=== PATIENT | male | born 1975 | race Caucasian/White ===

== ENCOUNTER 2021-09-11 23:38 | Emergency (ER) | payer OTHER, SELFPAY ==
--- NOTE | ~2021-09-11 | CT_ITS ---
EXAMINATION: CT abdomen pelvis wo con DATE: 09/12/2021 00:28 INDICATION: Right flank pain TECHNIQUE: Computed tomography (CT) of the abdomen and pelvis was performed without intravenous contr ast. Automated exposure control and iterative reconstruction technique were employed. Exam dose: 175 3.83 mGy-cm total exam DLP. COMPARISON: 07/26/2019 [facility] 07/26/2019 CT abdomen pelvis FINDINGS: Mild discoid atelectasis or scarring at the lingula and left lower lobe. Normal heart size. No pericardial or pleural effusion. There is hepatic steatosis with relative sparing at the pericholecystic area. No hepatic, splenic, pa ncreatic, and adrenal or renal space-occupying mass lesion is evident. There is a pinpoint lower pole right renal calculus and approximately 3 mm mid left renal calculus. No ureteral calculus or hydrour eteronephrosis is noted on either side. The urinary bladder and prostate gland and seminal vesicles a re unremarkable. Normal caliber of the abdominal aorta. No intraperitoneal or retroperitoneal or pelvic mass lesion or adenopathy or ascites. The appendix is not definitively identified. Diverticulosis of the sigmoid colon; no CT evidence of d iverticulitis. No bowel obstruction, bowel wall thickening, pneumatosis or intraperitoneal free air. Small fat-containing umbilical hernia. 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 IMPRESSION: Small nonobstructing calculus of each kidney; no ureteral calculus or hydroureteronephro sis Hepatic steatosis Mild sigmoid diverticulosis; no CT evidence of diverticulitis Bilateral L5 pars interarticularis defects with grade 2 anterolisthesis and severe degenerative disc disease at L5-S1 Reviewed, dictated and finalized at [facility]. Reviewed, dictated and finalized at [facility] [employer] IMPRESSION: Small nonobstructing calculus of each kidney; no ureteral calculus or hydroureteronephrosis Hepatic steatosis Mild sigmoid diverticulosis; no CT evidence of diverticulitis Bilateral L5 pars interarticularis defects with grade 2 anterolisthesis and sev ere degenerative disc disease at L5-S1
[2021-09-11 23:49] VITALS: BP 162/103; PULSE 73; RESP 20; TEMP 36.6; O2SAT 100
--- NOTE | 2021-09-12 00:13 | ED.ABDPAIN ---
HPI - Abdominal Pain General Chief Complaint: Abdominal Pain Stated Complaint: R flank pain Time Seen by Provider: 09/11/21 23:47 History of Present Illness HPI narrative: 45-year-old man presents to the emergency room with acute onset of right flank pain. Patient has a history of kidney stones, states the pain feels similar to past episodes. Denies any dysuria or urinary retention. Flank pain is associated with nausea. Denies diarrhea or constipation. 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 States that his back pain may be attributed to his schooling. Related Data Allergies Allergy/AdvReac Type Severity Reaction Status Date / Time cephalexin Allergy Unknown Unknown Verified 12/16/18 10:08 Review of Systems Review of Systems: CONSTITUTIONAL: Denies fever, chills, or sweats. EYES: Denies visual changes, redness, or discharge. ENT: Denies rhinorrhea, congestion, sore throat, or otalgia. CARDIOVASCULAR: Denies chest pain, palpitations, or edema. RESPIRATORY: Denies cough or dyspnea. GASTROINTESTINAL: Reports right CVA tenderness, nausea. Denies diarrhea constipation GENITOURINARY: Denies dysuria or hematuria. SKIN: Denies rash or itching. MUSCULOSKELETAL: Denies back pain, joint pain, or myalgia. NEUROLOGIC: Denies headache, numbness, dizziness, or weakness. PSYCHIATRIC: Denies anxiety or depression. [facility] Past Medical History Medical History DVT (deep venous thrombosis) Hyperthyroidism Kidney stones Surgical History Surgical History H/O lithotripsy History of renal stent Hx of appendectomy Social History Social History Smoking status: Never smoker Gender identity (if verbalized by the patient): Male Exam Narrative: GENERAL: Well-appearing, well-nourished, and in no acute distress. HEAD: Normocephalic, atraumatic. EYES: PERRLA and EOMI. ENT: Nares clear, no rhinorrhea or epistaxis. Mucous membranes moist. NECK: Supple. No adenopathy or masses. No carotid bruits or JVD CHEST: Clear to auscultation. No respiratory distress. No wheezes rales or rhonchi HEART: Regular rate and rhythm. No murmur heard. Normal peripheral pulses. ABDOMEN: Soft, nontender, nondistended, normal active bowel sounds. Right CVA tenderness EXTREMITIES: Normal range of motion. No edema. SKIN: Warm, dry, no rash. NEURO: No focal deficits. Alert and oriented x3. PSYCH: Normal mood and affect. Course Vital Signs Vital signs: Vital Signs Temperature 36.6 C 09/11/21 23:49 Pulse Rate 73 09/11/21 23:49 Respiratory Rate 20 09/11/21 23:49 Blood Pressure 162/103 H 09/11/21 23:49 Pulse Oximetry 100 09/11/21 23:49 Temperature 36.6 C 09/11/21 23:49 Pulse Rate 73 09/11/21 23:49 Respiratory Rate 20 09/11/21 23:49 Blood Pressure 162/103 H 09/11/21 23:49 Pulse Oximetry 100 09/11/21 23:49 MDM - Abdominal Pain MDM Narrative Medical decision making narrative: CT abdomen showed no acute obstructed kidney stone at this time. Slightly elevated white blood cell count likely due to an inflammatory process. CMP is unremarkable. Low back pain is likely due to chiropractic manipulation. We will send patient home on a muscle relaxer Lab Data Result diagrams: 09/12/21 00:51 09/12/21 00:51 Labs: Lab Results 09/12/21 09/12/21 Range/Units 00:51 00:51 WBC 12.5 H (4.5-10.0) K/mm3 RBC 4.66 (4.6-6.20) M/mm3 Hgb 14.3 (14.0-18.0) g/dL Hct 44.0 (42.0-52.0) % MCV 94.4 (80-100) fl MCH 30.7 (26-34) pg MCHC 32.5 (32-36) g/dl RDW 15.1 H (11.5-14.5) % Plt Count 262 (150-375) k/mm3 MPV 11.0 H (7.4-10.4) fl Immature Gran % (Auto) 0.2 (0-0.5) % Neut % (Auto) 69.4 (45.5-73.1) % Lymph % (Auto) 21.6 (18.3-44
[2021-09-12] MEDS: SODIUM CHLORIDE 0.9% IV 1,000 ML 999 ML IV CONT (00:49)
[2021-09-12] MEDS: MORPHINE SULFATE (*CRX) 4 MG/ML INJ IV PUSH (00:50)
[2021-09-12] MEDS: ONDANSETRON INJ 4 MG/2 ML VIAL IV PUSH (00:50)
[2021-09-12] MEDS: KETOROLAC 30 MG/ML VIAL (*BKC) IV PUSH (00:50)
[2021-09-12 01:14] LABS: Basophils Absolute Auto 0.1 K/mm3 (0.0-0.1); Basophils Percent Auto 0.4 % (0.2-1.2); Eosinophils Absolute Auto 0.1 K/mm3 (0-0.3); Eosinophils Percent Auto 0.6 % (0-4.4); Hemoglobin 14.3 g/dL (14.0-18.0); Immature Granulocyte Absolute 0.03 K/mm3 (0.00-0.031); Immature Granulocyte Percent A 0.2 % (0-0.5); Lymphocytes Absolute Auto 2.69 K/mm3 (0.9-3.2); Lymphocytes Percent Auto 21.6 % (18.3-44.2); Mean Corpuscular HGB Conc 32.5 g/dl (32-36); Mean Corpuscular Hemoglobin 30.7 pg (26-34); Mean Corpuscular Volume 94.4 fl (80-100); Monocytes Percent Auto 7.8 % (2.6-8.5); Neutrophils Absolute Auto 8.7 K/mm3 (1.3-6.7); Neutrophils Percent Auto 69.4 % (45.5-73.1); Platelet Count Result 262 k/mm3 (150-375); Red Blood Count 4.66 M/mm3 (4.6-6.20); Red Cell Distribution Width 15.1 % (11.5-14.5); White Blood Count 12.5 K/mm3 (4.5-10.0)
[2021-09-12 01:25] LABS: Alanine Aminotransferase 25 U/L (4-50); Albumin Level 4.3 g/dL (3.5-5.1); Alkaline Phosphatase 74 U/L (38-126); Anion Gap 6 mmol/L (8-16); Aspartate Amino Transferase 27 U/L (17-59); Bilirubin,Total 0.7 mg/dL (0.2-1.3); Blood Urea Nitrogen 17 mg/dL (9-20); Calcium 8.6 mg/dL (8.4-10.2); Carbon Dioxide 30 mmol/L (22-30); Chloride 103 mmol/L (98-107); Estimated CRCL calculation 126 ml/min; Estimated Glomerular Filt Rate > 60; Glucose 140 mg/dL (65-110); Potassium 3.7 mmol/L (3.4-5.0); Sodium 139 mmol/L (137-145)
[2021-09-12 02:17] VITALS: BP 106/65; PULSE 68; RESP 18; O2SAT 98
[2021-09-12 02:21] LABS: Appearance Urine Clear (Clear); Bilirubin Urine Negative (Negative); Color Urine Yellow (Yellow); Glucose Urine UA Negative (Negative); Ketones Urine Negative (Negative); Leukocyte Esterase Ur Negative LEU/UL (Negative); Nitrate Urine Negative (Negative); Protein Urine Negative (Negative); Urobilinogen Urine 0.2 mg/dL (<2.0); pH Urine 5.5 (5.0-9.0)
[2021-09-12 02:36] LABS: Bacteria Urine Trace /hpf; WBC Urine 0-3 /hpf
[2021-09-12 02:39] LABS: Add Urine Microscopic? YES; Blood Urine Trace (Negative)
== END 2021-09-12 02:19 | disposition home or self-care (01) ==
PROVIDERS: Emergency Provider Nurse Practitioner Family
DX: M54.50 Low back pain, unspecified (principal); E05.90 Thyrotoxicosis, unspecified without thyrotoxic crisis or storm; Z86.718 Personal history of other venous thrombosis and embolism; Z87.442 Personal history of urinary calculi
CPT/HCPCS: 36415; 74176; 80053; 81001; 85025; 96374; 96375; 99284; J1885; J2270; J2405; J7030